=== PATIENT | female | born 1990 | race African-American/Black ===

== ENCOUNTER 2020-12-24 04:20 | Emergency (ER) | payer OTHER ==
[~2020-12-24] VITALS: Ht 170.2 cm; Wt 60.8 kg
[2020-12-24 04:23] VITALS: BP 118/73
--- NOTE | 2020-12-24 04:25 | NUR ---
WHILE TRIAGE, PT DID NOT ANSWER ANY OF MY QUESTIONS. PT ALSO REFUSED TO ANSWER THE ER MD'S QUESTIONS.
--- NOTE | 2020-12-24 04:27 | NUR ---
CALLED LAB FOR COVID SWAB.
[2020-12-24] MEDS ORDERED: LORAZEPAM INJ 2 MG/ML VIAL ONE (04:38)
[2020-12-24] MEDS ORDERED: LORAZEPAM INJ 2 MG/ML VIAL IM ONE (05:00)
--- NOTE | 2020-12-24 05:01 | NUR ---
PT RESTLESS, REFUSING COVID SWAB.
--- NOTE | 2020-12-24 05:07 | NUR ---
PT NOW SPEAKING TO ER STAFF, STATED SHE DOES NOT WANT THE COVID SWAB. ER MD AWARE.
--- NOTE | 2020-12-24 05:08 | NUR ---
PT NOW AAOX4. SPEAKING TO ER STAFF.
--- NOTE | 2020-12-24 06:37 | NUR ---
[facility] [employer] CALLED PARENTS TO [employer] IN[employer] PT. PARENTS AT BEDSIDE.
--- NOTE | 2020-12-24 06:40 | NUR ---
PICKED UP BY PARENTS. PT AMBULATED OUT OF ED.
== END 2020-12-24 06:42 | disposition home or self-care (01) ==
LOC: ER 04:22
DX: Z02.89 Encounter for other administrative examinations (principal); Z20.828 Contact with and (suspected) exposure to other viral communicable diseases; F69 Unspecified disorder of adult personality and behavior
CPT/HCPCS: 96372; 99283; J2060